=== PATIENT | male | born 1970 | race Caucasian/White ===

== ENCOUNTER 2018-07-28 10:16 | Emergency (ER) | payer OTHER ==
[2018-07-28] MEDS ORDERED: LIDOCAINE 1% (MDV) 10 ML INJ INJ (10:50)
== END 2018-07-28 11:43 | disposition home or self-care (01) ==
LOC: FTE 10:16
DX: S01.21XA Laceration without foreign body of nose, initial encounter (principal); W22.8XXA Striking against or struck by other objects, initial encounter; Y92.9 Unspecified place or not applicable
CPT/HCPCS: 12011; 99282-25